=== PATIENT | male | born 1970 | race Caucasian/White ===

== ENCOUNTER 2016-04-04 01:32 | Emergency (ER) | payer OTHER ==
[~2016-04-04] VITALS: Ht 180.3 cm; Wt 131.5 kg
[~2016-04-04 01:32] MED LIST: BENTYL20 MG PO; PERCOCET 325 MG1 TA2 PO; PERCOCET 5-3251 EACH PO; VALTREX1000 MG PO
--- NOTE | 2016-04-04 01:46 | ED GENERAL ADULT ---
History of Present Illness General Chief Complaint: General Adult Stated Complaint: "I'M SICK A DOG" X'S COMP HX SHINGLES Source: patient Exam Limitations: no limitations Vital Signs & Intake/Output Vital Signs & Intake/Output Vital Signs Date Time Temp Pulse Resp B/P Pulse O2 O2 Flow FiO2 Ox Delivery Rate 04/04 0305 96.8 96 18 150/67 96 Room Air 04/04 0141 98 Room Air 04/04 0136 95.6 94 18 148/68 97 Room Air Allergies Coded Allergies: NO KNOWN ALLERGIES (08/17/11) Reconcile Medications Albuterol Sulfate (Ventolin Hfa) 90 MCG HFA.AER.AD 2 PUF INH Q4-6 PRN PRN WHEEZE Amoxicillin/Potassium Clav (Augmentin 875-125 Tablet) 875 MG-125 MG TABLET 1 TAB PO BID BRONCHITIS Benzonatate (Tessalon Perle) 100 MG CAPSULE 1 CAP PO TID PRN COUGH Dicyclomine Hydrochloride (Bentyl) 20 MG TAB 1 TAB PO 4 TIMES/DAY PRN SPASM OXYCODONE HCL/ACETAMINOPHEN (Percocet 5-325 MG Tablet) 325 MG/5 MG TAB 1 TAB PO Q4-6 PRN PRN BREAKTHROUGH PAIN Oxycodone HCl/Acetaminophen (Percocet 5-325 MG Tablet) 5 MG-325 MG TABLET 1 TAB PO TID PRN BREAKTHROUGH PAIN Oxycodone HCl/Acetaminophen (Percocet 5-325 MG Tablet) 5 MG-325 MG TABLET 1-2 TAB PO Q6P PRN PAIN Prednisone 50 MG TABLET 1 TAB PO DAILY WHEEZING Valacyclovir HCl (Valtrex) 1,000 MG TABLET 1 TAB PO TID SHINGLES Triage Note: PT FROM HOME C/O "BODY ACHES ALL OVER". PT STATES THAT HE HAS NIGHT SWEATS, COUGH WITH PRODUCTIVE BROWNISH SPUTUM. "MY BODY ACHES ALL OVER IT NEVER REALLY WENT AWAY SINCE I GOT DX WITH SHINGLES AROUND JUDY" "I DIDNT GET MY FLU SHOT THIS YEAR, FEI HAD THE FLU ABOUT 8 YEARS AGO AND THESE SYMPTOMS FEEL SIMILAR." " MY GLAND ON THE RIGHT SIDE OF MY NECK IS SWOLLEN" AWAITING PROVIDER EVAL Triage Nurses Notes Reviewed? yes Onset: Gradual Duration: week(s):, getting worse Timing: recent history Injury Environment: home Severity: moderate Modifying Factors: Improves With: rest. Associated Symptoms: cough HPI: 45 yo gentleman h/o shingles, presents with 1-2 weeks of progressive cough, now with brown sputum, wheezing, body aches, fever. He notes that since he has gotten sick he has stopped smoking cigarettes. He has no chest pain, swelling of lower extremities, abdominal pain, nausea, vomiting, diarrhea. Past History Travel History Traveled to [place] past 21 day No Medical History Any Pertinent Medical History? 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 No Review of Systems Review of Systems Constitutional: Reports: no symptoms. EENTM: Reports: no symptoms. Respiratory: Reports: no symptoms. Cardiovascular: Reports: no symptoms. GI: Reports: no symptoms. Genitourinary: Reports: no symptoms. Musculoskeletal: Reports: no symptoms. Skin: Reports: no symptoms. Neurological/Psychological: Reports: no symptoms. Hematologic/Endocrine: Reports: no symptoms. Immunologic/Allergic: Reports: no symptoms. All Other Systems: Reviewed and Negative Physical Exam Physical Exam General Appearance: well developed/nourished, mild distress Head: atraumatic, normal appearance Eyes: Bilateral: normal appearance. Ears, Nose, Throat: normal pharynx, normal ENT inspection Neck: normal inspection, supple, full range of motion Respiratory: normal breath sounds, rhonchi, wheezing Cardiovascular: regular rate/rhythm Gastrointestinal: normal bowel sounds, soft, non-tender, no organomegaly Back: normal inspection, normal range of motion Extremities: normal inspection Neurologic/Psych: no motor/sensory deficits, awake, alert, oriented x 3 Skin: intact, normal color, warm/dry Core Measures ACS in differential dx? No CVA/TIA Diagnosis: No Severe Sepsis Present: No Septic Shock Present: No Progress Differential Diagnoses I considered the following diagnoses in my evaluation of the patient: bronchitis vs influenza vs pneumonia vs other. Plan of Care: Orders Procedure Date/time Status RAPID VIRAL INFLUENZA A 04/04 0146 Complete Diagnostic Imaging: Viewed by Me: Radiology Read. Discussed w/RAD: Radiology Read. CXR Impression: LOW LUNG VOLUMES Initial ED EKG: none Comments: PATIENT: BENTLEY MONIQUE PRESENT AGE: 45 PATIENT ACCOUNT NO: [id number] : 70 LOCATION: [facility] ORDERING PHYSICIAN: BIANKA ANGLIN MD SERVICE DATE: 04/04/16 EXAM TYPE: RAD - XRY-CHEST XRAY, PA AND LATERAL EXAMINATION: XR CHEST CLINICAL INFORMATION: Cough, phlegm COMPARISON: None. TECHNIQUE: PA and lateral views of the chest were obtained. FINDINGS: Assessment on the lateral view is limited. The lungs are hypoinflated. No definite consolidation is seen. No evidence of pneumothorax, pleural effusion, or overt pulmonary edema. The cardiomediastinal contour is unremarkable. No acute osseous findings are seen. IMPRESSION: Low lung volumes without definite acute findings. DICTATED BY: KEATON HAMPTON MD DATE/TIME DICTATED:04/04/16245 SMOKING PIPE COATER:KACIE DATE/TIME TRANSCRIBED:04/04/16245 CONFIDENTIAL, DO NOT COPY WITHOUT APPROPRIATE AUTHORIZATION. <Electronically signed in Other Vendor System> SIGNED BY: KEATON HAMPTON MD 04/04/16 0251 Departure Departure Disposition: HOME OR SELF CARE Condition: Stable Clinical Impression Primary Impression: Bronchitis Secondary Impressions: Bronchospasm Referrals: ADAMA RAMEY APRN (PCP/Family) Departure Forms: Customer Survey General Discharge Information Prescriptions: Current Visit Scripts Prednisone 1 TAB PO DAILY #5 TAB Albuterol Sulfate (Ventolin Hfa) 2 PUF INH Q4-6 PRN PRN WHEEZE #1 INHAL Ref 1 Amoxicillin/Potassium Clav (Augmentin 875-125 Tablet) 1 TAB PO BID #20 TAB Benzonatate (Tessalon Perle) 1 CAP PO TID PRN COUGH #20 CAP Comments 02 sat normal, cxr benign... pt safe for discharge with abx and supportive medications. Encouraged close follow up. Critical Care Note Critical Care Note Critical Care Time: non-applicable
[2016-04-04] MEDS ORDERED: VENTOLIN HFA18 GM INH (01:54)
[2016-04-04] MEDS ORDERED: PREDNISONE50 M1 PO (01:54)
[2016-04-04] MEDS ORDERED: TESSALON PERLE100 M1 PO (01:54)
[2016-04-04] MEDS ORDERED: AUGMENTIN 875-1 EACH PO (01:54)
--- NOTE | 2016-04-04 02:51 | RADIOLOGY REPORT ---
EXAMINATION: XR CHEST CLINICAL INFORMATION: Cough, phlegm COMPARISON: None. TECHNIQUE: PA and lateral views of the chest were obtained. FINDINGS: Assessment on the lateral view is limited. The lungs are hypoinflated. No definite consolidation is seen. No evidence of pneumothorax, pleural effusion, or overt pulmonary edema. The cardiomediastinal contour is unremarkable. No acute osseous findings are seen. IMPRESSION: Low lung volumes without definite acute findings.
[2016-04-04 03:05] VITALS: BP 150/67
== END 2016-04-04 03:05 ==
LOC: ERH 01:32
DX: J20.9 Acute bronchitis, unspecified (principal); F17.210 Nicotine dependence, cigarettes, uncomplicated
CPT/HCPCS: 1263; 87804; 87804-59; J3490

== ENCOUNTER 2017-06-02 06:26 | Emergency (ER) | payer OTHER ==
[~2017-06-02] VITALS: Ht 180.3 cm; Wt 120.2 kg
[~2017-06-02 06:26] MED LIST changes: +AUGMENTIN 875-1 EACH PO; +PREDNISONE50 M1 PO; +TESSALON PERLE100 M1 PO; +VENTOLIN HFA18 GM INH
[2017-06-02 06:55] VITALS: BP 160/96
--- NOTE | 2017-06-02 06:58 | ED UPPER/LOWER EXTREMITY COMPL ---
History of Present Illness General Chief Complaint: Skin Rash/ Abcess Stated Complaint: "I HAVE SHINGLES" Source: patient Exam Limitations: no limitations Vital Signs & Intake/Output Vital Signs & Intake/Output Vital Signs Date Time Temp Pulse Resp B/P B/P Pulse O2 O2 Flow FiO2 Mean Ox Delivery Rate 06/02 0655 97.6 99 20 160/96 95 Room Air Allergies Coded Allergies: NO KNOWN ALLERGIES (08/17/11) Reconcile Medications Albuterol Sulfate (Ventolin Hfa) 90 MCG HFA.AER.AD 2 PUF INH Q4-6 PRN PRN WHEEZE Amoxicillin/Potassium Clav (Augmentin 875-125 Tablet) 875 MG-125 MG TABLET 1 TAB PO BID BRONCHITIS Benzonatate (Tessalon Perle) 100 MG CAPSULE 1 CAP PO TID PRN COUGH Dicyclomine Hydrochloride (Bentyl) 20 MG TAB 1 TAB PO 4 TIMES/DAY PRN SPASM OXYCODONE HCL/ACETAMINOPHEN (Percocet 5-325 MG Tablet) 325 MG/5 MG TAB 1 TAB PO Q4-6 PRN PRN BREAKTHROUGH PAIN Oxycodone HCl/Acetaminophen (Percocet 5-325 MG Tablet) 5 MG-325 MG TABLET 1 TAB PO TID PRN BREAKTHROUGH PAIN Oxycodone HCl/Acetaminophen (Percocet 5-325 MG Tablet) 5 MG-325 MG TABLET 1-2 TAB PO Q6P PRN PAIN Prednisone 50 MG TABLET 1 TAB PO DAILY WHEEZING Valacyclovir HCl (Valtrex) 1,000 MG TABLET 1 TAB PO TID SHINGLES Triage Nurses Notes Reviewed? yes HPI: Patient presents for evaluation of a severe right proximal lateral thigh pain that began gradually about 2 weeks ago. The pain has been more or less constant but fluctuates in intensity and seems worse at night. It is also worse with movement. It varies between a sharp pain, and numbness and pins and needles. The patient states that he was treated recently for a shingles infection of the right chest and he states the feeling is similar. He denies a rash currently. He is taking gabapentin for other nerve pain he suffers chronically. Past History Travel History Traveled to [place] past 21 day No Medical History Any Pertinent Medical History? 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 No Review of Systems Review of Systems Constitutional: Reports: no symptoms. EENTM: Reports: no symptoms. Respiratory: Reports: no symptoms. Cardiovascular: Reports: no symptoms. Gastrointestinal/Abdominal: Reports: no symptoms. Genitourinary: Reports: no symptoms. Musculoskeletal: Reports: see HPI. Skin: Reports: no symptoms. Neurological/Psychological: Reports: no symptoms. Hematologic/Endocrine: Reports: no symptoms. Immunological: Reports: no symptoms. All Other Systems: Reviewed and Negative Physical Exam Physical Exam General Appearance: SEE BELOW Comments: Gen.: Well-nourished, well-developed, no acute respiratory distress. Uncomfortable appearing secondary to right proximal lateral pain. Head: Normocephalic, atraumatic. Eyes: Normal inspection bilaterally Ears: Normal inspection bilaterally Nose: Normal inspection Throat/mouth : Moist mucosa Neck: Supple, full range of motion, no goiter Heart: Regular rate and rhythm Lungs: Quiet respirations Chest: No rashes Back: Normal range of motion Extremities: right lower extremity: No rashes, erythema, soft tissue swelling or ecchymoses. Distal sensation and pulses are normal. Deep tendon reflexes at the knee and ankle are normal. Neurologic: Cranial nerves grossly intact, speech is clear Skin: warm and dry Psychiatric: Calm, cooperative, no apparent delusions or hallucinations Progress Differential Diagnosis: arterial insufficiency, cellulitis, contusion, sprain, SHINGLES, NEUROPATHY Plan of Care: Orders Procedure Date/time Status US-UNILATERAL VENOUS DOPPLER 06/02 0659 Active COMPREHENSIVE METABOLIC PANEL 06/02 0659 Active CBC WITHOUT DIFFERENTIAL 06/02 0659 Active Laboratory Tests 06/02/17 0709: Sodium Pending, Potassium Pending, Chloride Pending, Carbon Dioxide Pending, Anion Gap Pending, BUN Pending, Creatinine Pending, BUN/Creatinine Ratio Pending , Glucose Pending, Calcium Pending, Total Bilirubin Pending, AST Pending, ALT Pending, Alkaline Phosphatase Pending, Total Protein Pending, Albumin Pending, Globulin Pending, Albumin/Globulin Ratio Pending, CBC w Diff Pending, WBC Pending, RBC Pending, Hgb Pending, Hct Pending, MCV Pending, MCH Pending, MCHC Pending, RDW Pending, Plt Count Pending, MPV Pending Comments: 06/02/2017 7:36:05 AM according to this patient's nurse, he has left the emergency department AGAINST MEDICAL ADVICE. Departure Departure Disposition: LEFT AGAINST MEDICAL ADVICE Condition: Stable Clinical Impression Primary Impression: Right thigh pain Referrals: Yesi Rosario APRN (PCP/Family) Departure Forms: Customer Survey General Discharge Information
[2017-06-02 07:42] LABS: ABSOLUTE BASOPHIL COUNT 0 /CUMM (0.0-0.2); ABSOLUTE EOSINOPHIL COUNT 0.2 /CUMM (0.0-0.7); ABSOLUTE GRANULOCYTE CT 4.8 /CUMM (1.4-6.5); ABSOLUTE LYMPH COUNT 1.8 /CUMM (1.2-3.4); ABSOLUTE MONOCYTE COUNT 0.5 /CUMM (0.10-0.60); BASOPHIL % 0.4 % (0.0-2.0); EOSINOPHIL % 2.5 % (0-5); GRANULOCYTE % 65.8 % (42.2-75.2); MEAN CORPUSCULAR HGB 29.9 PG (27.0-31.0); MEAN CORPUSCULAR HGB CONC 33.5 G/DL (33.0-37.0); MEAN CORPUSCULAR VOLUME 89.4 FL (80.0-94.0); MEAN PLATELET VOLUME 8.5 FL (7.4-10.4); PLATELET COUNT 258 /CUMM (130-400); RBC DISTRIBUTION WIDTH 13.7 % (11.5-14.5); RED BLOOD CELL CT 4.58 /CUMM (4.70-6.10); WHITE BLOOD CELL COUNT 7.3 /CUMM (4.8-10.8)
== END 2017-06-02 07:51 | disposition left against medical advice (07) ==
LOC: ERH 06:26
PROVIDERS: Emergency Medicine
DX: M79.651 Pain in right thigh (principal)
CPT/HCPCS: 96374; J1885